=== PATIENT | male | born 1965 | race Hispanic/Latino ===

== ENCOUNTER 2019-02-22 12:15 | Emergency (ER) | payer OTHER ==
[2019-02-22] MEDS ORDERED: Lidocaine 1% w/Epinephrine 1:100K 20 ML VIAL ONE (12:36)
[2019-02-22] MEDS ORDERED: Ibuprofen 800 MG TAB ONE (13:13)
== END 2019-02-22 13:31 ==
LOC: ERS 12:15 → EEVIPCON 12:15 → ERS 13:31
DX: L02.611 Cutaneous abscess of right foot (principal); I10 Essential (primary) hypertension; K74.60 Unspecified cirrhosis of liver
CPT/HCPCS: 10060

== ENCOUNTER 2019-05-01 16:26 | Inpatient (IN) | payer OTHER ==
[~2019-05-01 16:26] MED LIST: Lidocaine 1% PF 5 ML VIAL ONE; PHENYLEPHRINE-NS 100 MCG/ML 10 ML SYRINGE ONE; PROPOFOL 200 MG/20 ML VIAL ONE; Rocuronium Bromide 10 MG/ML (10ML VIAL) ONE; Succinylcholine Chloride 20 MG/ML 10 ml SYRINGE FS ONE; ePHEDrine/0.9% NaCl/PF SYRINGE 50 mg/10 ml ONE
[2019-05-01] MEDS ORDERED: Octreotide Acetate 50 MCG/ML AMP SLOW IVP SCH (18:15)
[2019-05-01] MEDS ORDERED: Octreotide Acetate 1,250 MCG in Sodium Chloride 0.9% 250 ML 250 ML IVPB SCH ×2 (18:30→22:59)
[2019-05-01] MEDS ORDERED: Octreotide Acetate 100 MCG/ML VIAL ONE (18:33)
[2019-05-01] MEDS ORDERED: Pantoprazole 40 MG VIAL ONE (18:33)
[2019-05-01] MEDS ORDERED: Ondansetron PF 4 MG/2 ML Vial ONE ×2 (18:33→19:30)
--- NOTE | 2019-05-01 18:34 | RAD ---
Chest AP view INDICATION: Vomiting COMPARISON: None FINDINGS: Lungs:The lungs are clear Cardiac silhouette:The cardiomediastinal silhouette appears within normal limits. Pulmonary vasculature:Normal Pleural spaces:No pleural effusion or pneumothorax is demonstrated. Upper abdomen:No abnormality seen. Osseous structures: No acute osseous abnormality. Additional findings:Right IJ central venous catheter with its tip projecting in the region of the cav oatrial junction. IMPRESSION: No acute cardiopulmonary abnormality.
[2019-05-01 19:10] LABS: #Lymphocytes 1.2 thou/uL (1.20-3.40); #Monocytes 0.4 thou/uL (0.11-0.59); #Neutrophils 6.6 thou/uL (1.40-6.50); %Basophils 0.4 % (0.0-1.0); %Eosinophils 0.6 % (0.0-10.0); %Monocytes 4.8 % (0.0-10.0); %Neutrophils 80.3 % (42.0-75.0); Hemoglobin 9.6 g/dL (14.0-18.0); Mean Corpuscular HGB CONC 32.2 g/dL (32.0-36.0); Mean Corpuscular Hemoglobin 30.9 pg (27.0-31.0); Mean Corpuscular Volume 95.9 fL (78.0-98.0); RBC Distribution Width 13.4 % (11.5-14.5); White Blood Cell (WBC) Count 8.3 thou/uL (4.8-10.8)
[2019-05-01 19:14] LABS: INR-International Normal Ratio 1.3; Prothrombin Time 16.6 SEC (12.0-14.7)
[2019-05-01 19:18] LABS: Bilirubin Negative (Negative); Blood, Urine Negative (Negative); Clarity Clear (Clear); Glucose, Urine (Dipstick) Normal (Negative); Leukocyte Negative Leu/uL (Negative); Nitrite Negative (Negative); Protein, Urine (Dipstick) 20 mg/dL (Neg-Trace)
[2019-05-01 19:25] LABS: Mean Platelet Volume 8.8 fL (7.4-10.4); Platelet Count 104 thou/uL (130-400); Platelet Morphology Comment Appears Decreased; RBC Morphology Normal
[2019-05-01 19:31] LABS: ALT (SGPT) 16 U/L (8-55); AST (SGOT) 33 U/L (5-34); Albumin 2.4 g/dL (3.5-5.0); Alkaline Phosphatase 103 U/L (40-110); Anion Gap 9 mmol/L (10-20); BUN (Urea Nitrogen) 18 mg/dL (8.4-25.7); Bilirubin, Total 0.7 mg/dL (0.2-1.2); CK (CPK) 51 U/L (30-200); Calc. Creatinine Clearance 0 mL/min (70-130); Calcium 7.1 mg/dL (7.8-10.44); Carbon Dioxide 22 mmol/L (22-29); Chloride 110 mmol/L (98-107); Estimated GFR-MDRD Greater than 90; Globulin 2.9 g/dL (2.4-3.5); Glucose 140 mg/dL (70-105); Lipase 32 U/L (8-78); Potassium 4.3 mmol/L (3.5-5.1); Protein, Total 5.3 g/dL (6.0-8.3); Sodium 137 mmol/L (136-145)
[2019-05-01 20:38] LABS: Hemoglobin 9.1 g/dL (14.0-18.0)
--- NOTE | 2019-05-01 20:50 | PDOC.FPRHP ---
- History of Present Illness Chief Complaint: hematemesis History of Present Illness: Patient is a 53M with PMHx of esophageal varices, Hep C (treated), Cirrhosis, venous insufficiency that presents to the ED for hematemesis. Patient reports that he started having bouts of hematemesis earlier today after eating baked chicken. He also reports that he had several BM of bright red blood. He was seen in the medical [facility] and brought to the ED from the [facility]. He states that he does have a hx of esophageal varices for which he has undergone several corses of banding previously, but he has never had hematemesis or hematochezia. He reports of chronic cirrhosis from Hep C, which has been treated. Hep C was acquired from a hx of drug use. Denies cp, sob, abdominal pain. PCP: [facility] Course: 1g rocephin, 500ml NS, 8mg zofran x 2, 50mcg octreotide, 40mg protonix, 1L NS - Allergies/Adverse Reactions Allergies Allergy/AdvReac Type Severity Reaction Status Date / Time No Known Drug Allergies Allergy Verified 05/01/19 23:24 - Home Medications Medication Instructions Recorded Confirmed Type Acetaminophen 325 mg PO TID PRN 05/01/19 05/01/19 History Clindamycin HCl 300 mg PO TID 05/01/19 05/01/19 History Clotrimazole 1% Cream [Lotrimin 1% 1 applic TOP BID 05/01/19 05/01/19 History Cream] Cyanocobalamin 1000 MCG/ML VIA 1,000 mcg IM Q28D 05/01/19 05/01/19 History [Vitamin B-12] Furosemide [Lasix] 40 mg PO BID 05/01/19 05/01/19 History Lactulose 10 GM/15ML Oral Masha 30 gm PO BID 05/01/19 05/01/19 History [Lactulose] Lanolin/Mineral Oil [Thera-Derm 1 applic TOP ASDIR PRN 05/01/19 05/01/19 History Lotion] Naproxen 500 mg PO BID PRN 05/01/19 05/01/19 History Potassium Chloride 10 meq PO DAILY 05/01/19 05/01/19 History Propranolol [Inderal] 10 mg PO TID 05/01/19 05/01/19 History Spironolactone [Aldactone] 25 mg PO BID 05/01/19 05/01/19 History carBAMazepine [Carbamazepine] 400 mg PO QPM 05/01/19 05/01/19 History - History PMHx:esophageal varices, Hep C (treated), Cirrhosis, venous insufficiency PSHx: prior esophageal varices FHx: non-contributory Social: hx of IV drug use, hx of alcohol use but not abuse, 1/2ppd - Review of Systems General: denies: fever/chills, weight/appetite/sleep changes Eyes: denies: eye pain, vision changes ENT: denies: nasal congestion, rhinorrhea Respiratory: denies: cough, shortness of breath Cardiovascular: denies: chest pain, edema Gastrointestinal: reports: nausea, vomiting, GI bleeding Genitourinary: denies: incontinence, dysuria Skin: denies: rashes, jaundice Musculoskeletal: denies: pain, tenderness Neurological: denies: numbness, syncope Psychological: denies: anxiety, depression - Vital signs BP: [98/41] HR: [82] RR: [16] Tmax: [98.0] Pox: [97]% on [RA] Wt: [107.5kg] - Physical Exam Constitutional: NAD, awake, alert and oriented, well developed HEENT: normocephalic and atraumatic, EOMI, MMM Neck: supple, FROM Chest: no-tender to palpation, no lesions Heart: RRR, normal S1/S2, other (2+ pitting edema BLE to knees) Lungs: CTAB, no respiratory distress Abdomen: soft, non-tender, bowel sounds present Musculoskeletal: normal structure, normal tone Neurological: no focal deficit, normal sensation Skin: no rash/lesions, good turgor Heme/Lymphatic: no purpura, other (venous stasis dermatitis BLE) Psychiatric: normal mood and affect, good judgment and insight FMR H&P: Results - Labs Result Diagrams: 05/02/19 03:55 05/02/19 03:55 Lab results: WBC 8.3 thou/uL (4.8-10.8) 05/01/19 18:54 Hgb 9.1 g/dL (14.0-18.0) L 05/01/19 20:26 Hct 27.4 % (42.0-52.0) L 05/01/19 20:26 MCV 95.9 fL (78.0-98.0) 05/01/19 18:54 Plt Count 104 thou/uL (130-400) L 05/01/19 18:54 Neutrophils % 80.3 % (42.0-75.0) H 05/01/19 18:54 Sodium 137 mmol/L (136-145) 05/01/19 18:54 Potassium 4.3 mmol/L (3.5-5.1) 05/01/19 18:54 Chloride 110 mmol/L (98-107) H 05/01/19 18:54 Carbon Dioxide 22 mmol/L (22-29) 05/01/19 18:54 BUN 18 mg/dL (8.4-25.7) 05/01/19 18:54 Creatinine 0.85 mg/dL (0.7-1.3) 05/01/19 18:54 Glucose 140 mg/dL (70-105) H 05/01/19 18:54 Lactic Acid 1.5 mmol/L (0.5-2.2) 05/01/19 18:54 Calcium 7.1 mg/dL (7.8-10.44) L 05/01/19 18:54 Total Bilirubin 0.7 mg/dL (0.2-1.2) 05/01/19 18:54 AST 33 U/L (5-34) 05/01/19 18:54 ALT 16 U/L (8-55) 05/01/19 18:54 Alkaline Phosphatase 103 U/L (40-110) 05/01/19 18:54 Creatine Kinase 51 U/L (30-200) 05/01/19 18:54 B-Natriuretic Peptide 156.8 pg/mL (0-100) H 05/01/19 18:54 Serum Total Protein 5.3 g/dL (6.0-8.3) L 05/01/19 18:54 Albumin 2.4 g/dL (3.5-5.0) L 05/01/19 18:54 Lipase 32 U/L (8-78) 05/01/19 18:54 Urine Ketones Negative mg/dL (Negative) 05/01/19 18:55 Urine Blood Negative (Negative) 05/01/19 18:55 Urine Nitrite Negative (Negative) 05/01/19 18:55 Ur Leukocyte Esterase Negative Nico/uL (Negative) 05/01/19 18:55 - EKG Interpretation EKG: NSR - Radiology Interpretation Chest x-ray Status: report reviewed by me (No acute abnormality) FMR H&P: A/P - Problem List (1) Upper GI bleed Current Visit: Yes Status: Acute Code(s): K92.2 - GASTROINTESTINAL HEMORRHAGE, UNSPECIFIED (2) Esophageal varices Current Visit: Yes Status: Chronic Code(s): I85.00 - ESOPHAGEAL VARICES WITHOUT BLEEDING (3) Hepatitis C Current Visit: Yes Status: Chronic Code(s): B19.20 - UNSPECIFIED VIRAL HEPATITIS C WITHOUT HEPATIC COMA (4) Cirrhosis Current Visit: Yes Status: Chronic Code(s): K74.60 - UNSPECIFIED CIRRHOSIS OF LIVER (5) Venous insufficiency Current Visit: Yes Status: Acute Code(s): I87.2 - VENOUS INSUFFICIENCY ( CHRONIC) (PERIPHERAL) (6) Hypocalcemia Current Visit: Yes Status: Acute Code(s): E83.51 - HYPOCALCEMIA - Plan Patient is a 53M with PMHx of esophageal varices, Hep C (treated), Cirrhosis, venous insufficiency admitted for upper GI bleed #Upper GI Bleed -patient's hbg reportedly 5.6 [facility] the [place] [facility], started on 3u pRBC in the ED -hx of esophageal varices with banding, cirrhosis -started on octreotide and protonix in ED, continue -Dr. Ferraro consulted in ED, to take patient back for emergent EGD -started on ceftriaxone in ED, continue -R IJ central line placed 05/01 in ED, will continue to monitor BP and add pressors as needed -will continue to monitor hgb and order blood as needed #Esophageal Varices #Cirrhosis #Hep C -patient has hx of esophageal varices, likely due to venous congestion from cirrhosis, likely due to hx of Hep C -patient reports that Hep C has been treated -patient to go for emergent EGD to identify bleed -Will continue home meds for venous congestion #Hypocalcemia -calcium 7.1 -albumin 2.4 -likely pseudocalcemia as calcium corrects with corrected albumin #Venous Insufficiency -2+ pitting edema BLE to knees -venous stasis dermatitis noted -will continue home meds/creams Diet: NPO Dispo: Dr. Ferraro to take patient for emergent EGD, will continue to monitor BP and add pressors as needed; will continue to monitor hgb and order blood as needed Code: DNR PCP: [facility] FMR H&P: Upper Level - Pertinent history 53 yo M w/hx of cirrhosis secondary to Hep here with complaint of hematemesis. Per [facility], he vomited over 1L of bright red blood earlier today. Upon arrival to ED he was hypotensive, as low as 60/22. He got 3u PRBC in the ED which resulted in improvement of his BP. Hb is 9.1. GI was called from ED who plans to take pt back for EGD. PMHx Cirrhosis Hep C, treated HTN Previous esophageal varices PVD Surgical Hx Debridement of R foot wound Previous Variceal banding Social Hx Previous IVDU, 0.5 ppd smoker, previous etoh use - Pertinent findings See internal audit consultant note for full ROS, PE, vitals, and labs ROS General Denies fever or chills HEENT denies sore throat or ear pain CV Denies of CP or palpitations Resp Denies SOB or cough GI Complains of vomiting blood Neuro denies weakness or numbness. PE General A&O x4 HEENT NCAT, bright red blood seen in mouth CV RRR, no murmur Resp CTA Abd Soft, non tender Extremities 2+ pitting edema to knees b/l, equal pedal pulses Neuro no focal deficits - Plan Date/Time: 05/01/192049 I, Daniel Peacock DO, have evaluated this patient and agree with findings/plan as outlined by internal audit consultant resident. Pertinent changes/additions are listed here. 1.Acute variceal bleed - s/p 3u PRBC. Vitals currently stable. Will transfuse as needed until he is able to go back for banding. -GI consulted from ER -octreotide and protonix gtt. Got 1g Rocephin in ED -admit to ICU 2.HTN -Home meds 3.Cirrhosis -continue home meds 4.Pseudo hypocalcemia - secondary to hypoalbuminemia due to cirrhosis, corrects to WNL See internal audit consultant note for management of other chronic disease Diet NPO Code DNAR PPx SCD Dispo: pt is in critical condition. Would expect 2-3 days of hospitalization pending results of EGD and course following Addendum - Attending - Attending Attestation Date/Time: 05/01/192229 I personally evaluated the patient and discussed the management with Dr. Dutta. I agree with the History, Examination, Assessment and Plan documented above with any addition or exceptions noted below. The patient presents hematemesis and hematochezia. He has a pmh of hep c, cirrhosis with esophageal varices. GI is taking patient for emergent egd. He will be admitted to the ICU afterward. Will trend h/h. Monitor blood pressure. Pt is on an octreotide drip.
[2019-05-01] MEDS ORDERED: Fentanyl 100 MCG/2 ML VIAL ONE (21:04)
[2019-05-01] MEDS ORDERED: Phenylephrine HCL 10 MG/ML VIAL ONE (21:04)
[2019-05-01] MEDS ORDERED: cefTRIAXone\\ROCEPHIN 1 GM VIAL ONE (21:14)
--- NOTE | 2019-05-01 22:00 | CON ---
DATE OF CONSULTATION: 05/01/2019 CHIEF COMPLAINT: Vomited blood. HISTORY OF PRESENT ILLNESS: Mr. Jacobo is a 53-year-old inmate, who ate lunch today and after that noticed lightheadedness and weakness. He had a bowel movement that was runny. He had a second bowel movement that he also did not look at, but then he saw the toilet paper was bloody. He went to the emergency room and in the emergency room, he vomited 1400 mL of red blood. He also had another red bloody stool. He has a history of cirrhosis. He was treated for hepatitis C last year with Epclusa with cure of the viral infection. He reports that he had banding of esophageal varices back in 2014, but he has never had a GI bleed. He has had nausea and received Zofran for that in the emergency room. He developed hypotension and dropped his blood pressure down to the 60s systolic after the hematemesis episode and he received a unit of O-negative blood. He is now receiving a second unit of blood and his blood pressure has improved to the 110s over 50s. Pulse is in the 80s. He has been afebrile. He has had no diarrhea, constipation, or blood in the stool leading up to this. He has no abdominal pain now. His weight has been stable. He states that he goes to [place] for ultrasound of the liver every 6 months. PAST MEDICAL HISTORY: Cirrhosis of liver. Hepatitis C, reportedly cured with Epclusa last year, esophageal varices. He denies a history of encephalopathy or ascites. He states that he had debridement of wound in his right leg last year with a staph infection. PAST SURGICAL HISTORY: Esophageal varices banding and debridement of the right leg. FAMILY HISTORY: Negative for liver cancer or GI malignancy. SOCIAL HISTORY: No alcohol, tobacco, or drugs. He has been incarcerated for the last 22 years. ALLERGIES: NO KNOWN DRUG ALLERGIES. MEDICATIONS: 1. Carbamazepine. 2. Clindamycin. 3. Topical clotrimazole. 4. Vitamin B12. 5. Furosemide 40 mg twice daily. 6. Lactulose 30 mL twice daily. 7. Naproxen 500 mg twice daily. 8. Potassium. 9. Propranolol 10 mg three times daily. 10. Spironolactone 25 mg twice daily. REVIEW OF SYSTEMS: Negative x10 systems reviewed, except as stated in the history of present illness. PHYSICAL EXAMINATION: VITAL SIGNS: His blood pressure is in the 110s over 50s. Pulse is in the 80s. Temperature 98.9. GENERAL: He is in no acute distress. Alert and oriented x3. HEENT: Eyes have no scleral icterus. Oropharynx is clear without lesions. NECK: No cervical or supraclavicular lymphadenopathy. LUNGS: Clear to auscultation bilaterally. HEART: Regular rate and rhythm without murmur. ABDOMEN: Soft, nontender, and nondistended. Bowel sounds are present. EXTREMITIES: He has 2+ pitting lower extremity edema with apparent chronic edema of the lower extremities. NEUROLOGIC: He has no asterixis. LABORATORY DATA: His white blood cell count is 8.3, hemoglobin was 9.6 on presentation. After 1 unit of blood, his hemoglobin dropped down to 9.1, platelets 104. INR 1.3. Creatinine 0.85, bilirubin 0.7, AST 33, ALT 16, and alkaline phosphatase 103, albumin 2.4. IMPRESSION: 1. Upper gastrointestinal bleed in the setting of cirrhosis and history of esophageal varices banded most recently in 2014. Most likely he has esophageal varix bleed now. He has been on naproxen twice daily. 2. Cirrhosis of the liver. His albumin is little low, but otherwise his liver function tests are pretty good. He is decompensated from a standpoint of portal hypertension and variceal bleed that otherwise his liver function is not bad. He has been on lactulose previously, but is not acutely encephalopathic now. 3. History of hepatitis C, status post cure with Epclusa per his report. 4. History of esophageal varices. 5. We will give antibiotics for spontaneous bacterial peritonitis prophylaxis. RECOMMENDATIONS: 1. He has received bolus of octreotide and has octreotide drip going now. 2. Blood transfusion. He has received 2 units so far and is receiving volume resuscitation. 3. We will plan for emergent esophagogastroduodenoscopy for treatment of suspected variceal bleed. 4. The [facility] and gets hepatoma screening done through [place]. 5. Ceftriaxone 1 g daily will be given for SBP prophylaxis. He has been given his first dose in the emergency room. Job ID: [id number]
[2019-05-01] MEDS ORDERED: Ethanolamine Oleate 5% 2 ml Ampule ONE ×5 (22:10→22:16)
[2019-05-01] MEDS ORDERED: Propofol 1,000 MG/100 ML VIAL IV ONE (22:53)
[2019-05-01 23:13] LABS: Actual Bicarbonate (HCO3a) 22.3 mEq/L (22-28); Base Excess (BEa) -4.9 mEq/L (-2.0 to +3.0); CO2 Tension 50.8 mmHg (35.0-45.0); Calcium, Ionized 1.02 mmol/L (1.12-1.30); Carboxyhemoglobin (COHb) 1.1 gm% (0.0-3.0); O2 Tension (PaO2) 68.6 mmHg (80.0-100.0); pH, Arterial 7.26 (7.35-7.45)
[2019-05-01] MEDS ORDERED: Morphine 2 MG/ML SYRINGE SLOW IVP PRN (23:14)
[2019-05-01] MEDS ORDERED: Fentanyl BOLUS 250 ML IVPB PRN (23:14)
[2019-05-01] MEDS ORDERED: Propofol BOLUS 1,000 MG/100 ML VIAL IV PRN (23:14)
[2019-05-01] MEDS ORDERED: fentaNYL Citrate/PF 2,000 MCG in Sodium Chloride 0.9% 60 ML IV SCH (23:14)
[2019-05-01] MEDS ORDERED: Propofol 1,000 MG/100 ML VIAL IV PRN (23:14)
[2019-05-01] MEDS ORDERED: DISCONTINUE PREVIOUS NARCOTIC PAIN MEDICATIONS AND BENZODIAZEPINES FS SCH (23:14)
[2019-05-01] MEDS ORDERED: Lorazepam 2 MG/ML VIAL SLOW IVP PRN (23:14)
[2019-05-01 23:15] LABS: Puncture Site RR
[2019-05-01 23:28] LABS: Hemoglobin A1c 5.7 % (4.0-6.0)
[2019-05-01] MEDS: cefTRIAXone\\ROCEPHIN 1 GM in Sodium Chloride 0.9% 100 ML IVPB SCH (23:28)
[2019-05-01] MEDS ORDERED: Norepinephrine 8 MG/0.9% NS 250 ML IVPB SCH (23:49)
[2019-05-01] MEDS: Pantoprazole 80 MG in Sodium Chloride 0.9% 100 ML IVP SCH (23:53)
--- NOTE | 2019-05-02 00:21 | OP ---
DATE OF PROCEDURE: 05/01/2019 PROCEDURE: Esophagogastroduodenoscopy with banding of bleeding esophageal varices. PREOPERATIVE DIAGNOSIS: Anemia of acute blood loss and acute gastrointestinal bleed secondary to esophageal varices and hemorrhagic shock and cirrhosis. DESCRIPTION OF PROCEDURE: Informed consent was obtained from the patient. He was sedated with general anesthesia. The endoscope was advanced easily to the second portion of the duodenum. The esophagus had three columns of large grade 3 esophageal varices. One column had a focal ulceration with an adherent clot which was the obvious bleeding source. The stomach was full of red blood and clot and could not be visualized. The duodenum also was stained with blood throughout and was not well visualized. The varix with the adherent clot and ulceration was then banded. Suction of the varix up into the scope to dislodge the clot and red blood filled the cap such that when the band was deployed, there was inadequate variceal tissue within the cap and the band did not hold. There was immediately large volume of bleeding that filled the esophagus. 300 mL of blood was immediately suctioned and a second band was then placed at the bleeding site. The varix was banded with the ulceration site just a millimeter proximal to the band of the feeding varix. However, there was still oozing from the ulceration site. The other two large columns were also banded. While the bleeding had slowed to trickle, there still was some oozing from that ulcerated varix and it was too close to the other band to place another band in that area, so ultimately was injected with 3 mL of ethanolamine with good hemostasis confirmed. IMPRESSION: 1. Three columns grade 3 large varices in the distal esophagus. One varix had a focal ulceration with an overlying clot which was the obvious bleeding source. Three bands were placed and one area of focal ulceration and oozing was also injected with 3 mL of ethanolamine. Good hemostasis was confirmed. 2. Large amount of red blood and clot in the stomach and duodenum and these areas could not be adequately visualized. 3. Additional units of red blood cells were given during the procedure. A total of 3 units have been given to this point. RECOMMENDATIONS: 1. Continue octreotide drip. 2. He will remain on the ventilator overnight in the ICU. 3. Ceftriaxone 1 g every 24 hours. Job ID: [id number]
[2019-05-02] MEDS ORDERED: MINERAL OIL TOP PRN (01:45)
[2019-05-02] MEDS ORDERED: LANOLIN TOP PRN (01:45)
[2019-05-02] MEDS: Sodium Chloride 0.9% 1,000 ML IV SCH ×2 (03:40→06:10)
[2019-05-02 04:38] LABS: Band 6 % (5-11); Hemoglobin 10.5 g/dL (14.0-18.0); Lymphocytes 8 % (21-51); MDiff Complete? YES; Mean Corpuscular HGB CONC 33.8 g/dL (32.0-36.0); Mean Corpuscular Hemoglobin 31.7 pg (27.0-31.0); Mean Corpuscular Volume 93.7 fL (78.0-98.0); Mean Platelet Volume 8.6 fL (7.4-10.4); Monocytes 9 % (0-10); Neutrophil 77 % (42-75); Platelet Count 110 thou/uL (130-400); Platelet Morphology Comment Appears Decreased; RBC Distribution Width 13.7 % (11.5-14.5); Red Blood Cell (RBC) Count 3.31 mill/uL (4.70-6.10); White Blood Cell (WBC) Count 12.5 thou/uL (4.8-10.8)
[2019-05-02 04:48] LABS: Anion Gap 10 mmol/L (10-20); BUN (Urea Nitrogen) 20 mg/dL (8.4-25.7); Calc. Creatinine Clearance 171 mL/min (70-130); Calcium 6.9 mg/dL (7.8-10.44); Carbon Dioxide 22 mmol/L (22-29); Chloride 112 mmol/L (98-107); Estimated GFR-MDRD Greater than 90; Glucose 138 mg/dL (70-105); Potassium 4.6 mmol/L (3.5-5.1); Sodium 139 mmol/L (136-145)
--- NOTE | 2019-05-02 05:51 | PDOC.FM ---
- Subjective Subjective: 53 yo male seen at bedside this AM. Patient is intubated and sedated. Per nursing staff, he has had persistent bloody emesis output through his NG tube. No other acute events overnight. - Objective Vital Signs & Weight: Vital Signs (12 hours) Temp Pulse Resp Pulse Ox 05/02/19 04:00 97.9 F 10 L 05/02/19 03:08 92 05/02/19 02:00 11 L 05/02/19 00:00 10 L 05/01/19 23:39 96 05/01/19 22:45 98 05/01/19 22:35 98.6 F Weight Weight 109.8 kg Most Recent Monitor Data Heart Rate from ECG 95 NIBP 112/52 NIBP BP-Mean 72 Respiration from ECG 12 SpO2 96 I&O: 04/30/19 05/01/19 05/02/19 06:59 06:59 06:59 Intake Total 100 Output Total 462 Balance -362 Result Diagrams: 05/02/19 03:55 05/02/19 03:55 Phys Exam - Physical Examination Constitutional: NAD ET in place Respiratory: no wheezing, clear to auscultation bilateral Cardiovascular: RRR, no significant murmur Gastrointestinal: soft, non-tender, positive bowel sounds Musculoskeletal: edema present unable to fully evaluate Deviation from normal: intubated and sedated Dx/Plan (1) Upper GI bleed Code(s): K92.2 - GASTROINTESTINAL HEMORRHAGE, UNSPECIFIED Status: Acute (2) Esophageal varices Code(s): I85.00 - ESOPHAGEAL VARICES WITHOUT BLEEDING Status: Chronic (3) Cirrhosis Code(s): K74.60 - UNSPECIFIED CIRRHOSIS OF LIVER Status: Chronic (4) Hepatitis C Code(s): B19.20 - UNSPECIFIED VIRAL HEPATITIS C WITHOUT HEPATIC COMA Status: Chronic - Plan Plan: 1. Upper GI bleed 2/2 to Esophageal Varices - s/p banding from GI - Continue Octreotide - Levophed turned off overnight - Repeat H&H stable - GI recommended continued intubation after procedure due to possibility of emesis induced rebleeding - Extubation per recommendations from Pulmonology - Continue Rocephin 2. Cirrhosis 2/2 Hepatitis C - Chronic - Supportive Care Disposition: Guarded, continue current plan of care. Addendum - Attending - Attending Attestation Date/Time: 02/02/20 0806 I personally evaluated the patient and discussed the management with Dr. Martínez. I agree with the History, Examination, Assessment and Plan documented above with any addition or exceptions noted below. Pt is s/p banding of esophageal varices. He has been weaned off levophed. He remains intubated. Anticipate he will be extubated later today. H/H is stable. Will continue to trend. F/u with GI recs. Pulm has been consulted.
[2019-05-02] MEDS: Pantoprazole 80 MG in Sodium Chloride 0.9% 100 ML IVP SCH ×2 (08:11→16:45)
[2019-05-02] MEDS ORDERED: Furosemide 20 MG/2 ML VIAL SLOW IVP SCH (09:00)
[2019-05-02] MEDS ORDERED: FLU VACC QS2019-20(6MOS UP)/PF 60 MCG/0.5 ML SYRINGE IM ONE (09:00)
[2019-05-02] MEDS: Clotrimazole 1 % Cream 30 GM TUBE TOP SCH ×2 (09:04→20:19)
[2019-05-02] MEDS: Furosemide 20 MG/2 ML VIAL SLOW IVP SCH ×2 (09:05→20:18)
--- NOTE | 2019-05-02 12:17 | CON ---
DATE OF CONSULTATION: 05/02/2019 SERVICE: Pulmonary Medicine. HISTORY OF PRESENT ILLNESS: The patient did really well overnight. He got a couple of units of blood yesterday. His hemoglobin went from 9.6 to 9.1 with 1 unit, but with an additional unit, he made an appropriate rise. He cannot provide much in the way of history right now. He denies any current fevers or chills. He is on mechanical ventilator, he appears to be comfortable. There has been no interval change to his condition otherwise. PAST MEDICAL HISTORY: 1. Cirrhosis secondary to hepatitis C, status post therapy. 2. Venous insufficiency. 3. Esophageal varices, history of. PAST SURGICAL HISTORY: EGD with banding. FAMILY HISTORY: Noncontributory. SOCIAL HISTORY: Currently, he is incarcerated. He has history of alcohol and IV drug abuse. He smokes half pack on daily basis. ALLERGIES: KNOWN DRUG ALLERGIES. MEDICATIONS: List of his inpatient medications was reviewed. Multiple updates were made at this time. REVIEW OF SYSTEMS: This cannot be obtained as the patient is currently intubated and sedated. PHYSICAL EXAMINATION: VITAL SIGNS: Afebrile; pulse 95; blood pressure 115/56; respirations 15,; saturation 99%, currently on 30% FiO2 and PEEP of 5. GENERAL: The patient is awake and alert. No apparent distress. LUNGS: Decent air entry. Crackles are present. HEART: Normal rate. Regular. ABDOMEN: Soft, nontender, and nondistended. Bowel sounds are positive. MUSCULOSKELETAL: No cyanosis or clubbing. There is diffuse pitting throughout. NEUROLOGIC: Grossly nonfocal. LABORATORY DATA: WBC 12.5, hemoglobin up-trending to 10.5, platelets 110,000, neutrophils 77% on top of 6% bands. INR 1.3. PH of 7.26, pCO2 of 50.1, and pO2 of 68. Basic metabolic profile is otherwise unremarkable. Calcium 6.9. Lactate 1.5. Hemoglobin A1c 5.7. Liver function studies are unremarkable. BNP is elevated, but troponin is negative x1. Occult blood is unremarkable. ASSESSMENT: 1. Acute hypoxic respiratory failure. 2. Acute blood loss anemia secondary to variceal bleed, status post banding, postop day #1. 3. Cirrhosis secondary to hepatitis C. 4. Massive volume overload. DISCUSSION AND PLAN: Agree with introducing diuretics, now that his hemoglobins are stable. The patient will be placed on a spontaneous breathing trial. When he wakes up and meets criteria, extubation will be performed. Pulmonary/Critical Care will continue to follow along while the patient remains in this location. He will need to be watched closely for 24 hours after extubation to make certain repeat bleeding does not occur. I would prefer that he stay in the ICU, or IMCU until tomorrow morning. CRITICAL CARE TIME: 30 minutes. Job ID: [id number]
[2019-05-02] MEDS: Calcium Gluc 4.6 MEQ/10 ML (100 MG/ML) SLOW IVP SCH ×2 (12:55→16:15)
--- NOTE | 2019-05-02 17:49 | PRG ---
DATE OF SERVICE: 05/02/2019 SUBJECTIVE: Mr. Jacobo was extubated today. He has been passing some old melenic stool. He has no chest pain or abdominal pain and would like to start a diet. OBJECTIVE: VITAL SIGNS: Temperature 98.6, pulse 105, and blood pressure 107/60. GENERAL: He is in no acute distress. Alert and oriented x3. No asterixis on neurological exam. LUNGS: Clear to auscultation bilaterally. HEART: Regular rate and rhythm without murmur. ABDOMEN: Soft, nontender, and nondistended. Bowel sounds present. EXTREMITIES: 1 to 2+ pitting lower extremity edema. LABORATORY DATA: White blood cell count 12.5, hemoglobin 10.5, platelets 110. Creatinine 0.77. IMPRESSION: 1. Acute gastrointestinal bleed secondary to esophageal varices, status post banding and injection of Sclerosant with good hemostasis achieved. 2. Cirrhosis of liver. He has a history of hepatitis C, which reportedly cured with Epclusa with treatment last year. 3. Anemia of acute blood loss. He presented with hemorrhagic shock and his vital signs improved with transfusion. He has received 3 units total this hospital stay. RECOMMENDATIONS: 1. Continue octreotide drip to complete a 72-hour course from the time of banding. 2. Ceftriaxone 1 g every 24 hours for SBP prophylaxis. 3. Change to twice daily dosing pantoprazole. 4. Start a full liquid diet today and I will anticipate advancing to a low-fiber diet tomorrow. Job ID: [id number]
[2019-05-02] MEDS: Pantoprazole 40 MG VIAL IVP SCH (20:19)
[2019-05-02] MEDS: cefTRIAXone\\ROCEPHIN 1 GM in Sodium Chloride 0.9% 100 ML IVPB SCH (21:03)
[2019-05-03 05:27] VITALS: BMI 35.6
[2019-05-03 07:11] LABS: Phosphorus 2.1 mg/dL (2.3-4.7)
[2019-05-03 07:12] LABS: Anion Gap 7 mmol/L (10-20); BUN (Urea Nitrogen) 18 mg/dL (8.4-25.7); Calc. Creatinine Clearance 148 mL/min (70-130); Calcium 7.4 mg/dL (7.8-10.44); Carbon Dioxide 27 mmol/L (22-29); Chloride 108 mmol/L (98-107); Estimated GFR-MDRD 89; Glucose 125 mg/dL (70-105); Magnesium 1.8 mg/dL (1.6-2.6); Potassium 3.6 mmol/L (3.5-5.1); Sodium 138 mmol/L (136-145)
--- NOTE | 2019-05-03 07:15 | PDOC.FM ---
- Subjective Subjective: Pt denies hematemesis. reports discomfort in his jaw and chest since yesterday that is positional and dependent on body mvmt. Denies SOB, no other transforming factors. Pt feels it is sore from all the vomiting he had before admission. - Objective Vital Signs & Weight: Vital Signs (12 hours) Temp Pulse Ox 05/03/19 06:19 97 05/03/19 04:00 98.3 F 05/03/19 00:00 98.4 F 95 05/02/19 20:00 98.4 F 95 Weight Weight 109.3 kg Most Recent Monitor Data Heart Rate from ECG 105 NIBP 106/49 NIBP BP-Mean 68 Respiration from ECG 15 SpO2 91 I&O: 05/02/19 05/03/19 05/04/19 06:59 06:59 06:59 Intake Total 1326.3 1348.6 Output Total 497 2400 Balance 829.3 -1051.4 Result Diagrams: 05/02/19 03:55 05/03/19 06:00 Phys Exam - Physical Examination Constitutional: NAD HEENT: moist MMs, sclera anicteric Neck: supple, full ROM Respiratory: no wheezing, no rales Cardiovascular: RRR, no significant murmur Gastrointestinal: soft, no distention Musculoskeletal: pulses present Neurological: normal sensation, moves all 4 limbs Psychiatric: normal affect Skin: no rash, normal turgor Dx/Plan (1) Upper GI bleed Code(s): K92.2 - GASTROINTESTINAL HEMORRHAGE, UNSPECIFIED Status: Acute (2) Cirrhosis Code(s): K74.60 - UNSPECIFIED CIRRHOSIS OF LIVER Status: Chronic (3) Esophageal varices Code(s): I85.00 - ESOPHAGEAL VARICES WITHOUT BLEEDING Status: Chronic (4) Hepatitis C Code(s): B19.20 - UNSPECIFIED VIRAL HEPATITIS C WITHOUT HEPATIC COMA Status: Chronic - Plan Plan: Upper GI bleed /2 to Esophageal Varices A- s/p banding from GI on 05/01, s/p levophed treatment and extubation on 05/02, h/ h stable and improved after 3u prbc. Pulm and GI recs appreciated P- Continue Octreotide -Continue Rocephin for SBP PPx. -full liquid diet, advancement per GI recs -PPI BID -likely transfer to medical today Cirrhosis 2/2 Hepatitis C -Chronic, Supportive Care Venous insufficiency -cont home lasix HTN -will restart home meds once tolerating normal diet DVT PPx: contraindicated 2/2 [facility]
[2019-05-03 07:47] LABS: Band 11 % (5-11); Hemoglobin 8.7 g/dL (14.0-18.0); Lymphocytes 9 % (21-51); MDiff Complete? YES; Mean Corpuscular HGB CONC 32.6 g/dL (32.0-36.0); Mean Corpuscular Hemoglobin 30.5 pg (27.0-31.0); Mean Corpuscular Volume 93.6 fL (78.0-98.0); Mean Platelet Volume 8.5 fL (7.4-10.4); Monocytes 3 % (0-10); Neutrophil 77 % (42-75); Platelet Count 86 thou/uL (130-400); Platelet Morphology Comment Appears Decreased; RBC Distribution Width 13.8 % (11.5-14.5); RBC Morphology Normal; Red Blood Cell (RBC) Count 2.85 mill/uL (4.70-6.10); White Blood Cell (WBC) Count 10.8 thou/uL (4.8-10.8)
[2019-05-03] MEDS: Furosemide 20 MG/2 ML VIAL SLOW IVP SCH ×2 (09:21→21:33)
[2019-05-03] MEDS: Clotrimazole 1 % Cream 30 GM TUBE TOP SCH (09:21)
[2019-05-03] MEDS: Pantoprazole 40 MG VIAL IVP SCH ×2 (09:21→21:33)
--- NOTE | 2019-05-03 10:56 | PRG ---
DATE OF SERVICE: 05/03/2019 ADDENDUM: To the note of Dr. Zoran Crum. Mr. Jacobo is a 53-year-old male with a history of cirrhosis secondary to hepatitis C, who presented with an upper GI bleed. He was found to have a bleeding esophageal varix, which was banded. He is currently hemodynamically stable and remains on octreotide drip as well as PPI infusion. His hemoglobin this morning is stable at 8.7 and hematocrit 26.6. He is alert and in no distress. We will continue to follow with the GI Service. Job ID: [id number]
[2019-05-03] MEDS: Sodium Chloride 0.9% 1,000 ML IV SCH (12:02)
--- NOTE | 2019-05-03 12:25 | PRG ---
DATE OF SERVICE: 05/03/2019 SERVICE: Pulmonary Medicine. INTERVAL HISTORY: The patient is doing fine from respiratory standpoint. Tolerated extubation quite well yesterday. He had a little bit of chest discomfort, but an EKG this morning was essentially unremarkable. There is no shortness of breath, nausea, vomiting, or diarrhea. Otherwise, he is returning to his usual state of health. PHYSICAL EXAMINATION: VITAL SIGNS: Afebrile, pulse 103, blood pressure 112/65, respirations 14, saturations 93% on room air. GENERAL: The patient is awake and alert, in no apparent distress. LUNGS: Wonderful air entry. Crackles are present. No prolonged expiratory phase or wheezing is appreciated. HEART: Normal rate, regular. ABDOMEN: Soft, nontender, nondistended. Bowel sounds are positive. MUSCULOSKELETAL: No cyanosis or clubbing. There is no pitting in the bilateral lower extremities. NEUROLOGIC: Grossly nonfocal. LABORATORY DATA: WBC 10.8, hemoglobin 8.7, platelets 86,000. INR 1.3. Basic metabolic profile is otherwise unremarkable. Phosphorus is 2.1. Troponin is below the assay limit of 0.01. ASSESSMENT: 1. Acute hypoxic respiratory failure. 2. Acute blood loss anemia secondary to variceal bleed, status post banding, postop day 2. 3. Cirrhosis secondary to hepatitis C. 4. Volume overload. DISCUSSION AND PLAN: I will continue to diurese the patient down to euvolemia. At this point, he is hemodynamically stable, and his heart rate is settling down. He can be transitioned to the floor. I will repeat a hemoglobin this afternoon to make certain that we are not still dropping. At this point, the patient has no further requirements for inpatient Pulmonary or Critical Care opinion, and I will sign off. Please call with additional questions or concerns through time. Job ID: [id number]
[2019-05-03] MEDS: Potassium Chloride 20 MEQ TAB PO SCH ×2 (13:09→13:18)
[2019-05-03] MEDS: Potassium Phosphate 15 MMOL in Sodium Chloride 0.9% 250 ML 250 ML IVPB SCH ×2 (13:09→13:37)
[2019-05-03 15:18] LABS: Hemoglobin 8.8 g/dL (14.0-18.0)
--- NOTE | 2019-05-03 15:55 | PRG ---
DATE OF SERVICE: 05/03/2019 SUBJECTIVE: Mr. Jacobo has some odynophagia. He would rather stick with a full liquid diet today. PHYSICAL EXAMINATION: VITAL SIGNS: Temperature 98.3, pulse 103, blood pressure 112/65. GENERAL: He is in no acute distress. Alert and oriented x3. No asterixis. LUNGS: Clear to auscultation bilaterally. HEART: Regular rate and rhythm without murmur. ABDOMEN: Soft, nontender, nondistended. Bowel sounds are present. EXTREMITIES: Have chronic stasis changes and lymphedema and 1 to 2+ pitting lower extremity edema. LABORATORY DATA: Hemoglobin is 8.8. INR 1.3. Creatinine 0.9. IMPRESSION: 1. Esophageal varices, acute bleed status post banding and sclerosis. 2. Odynophagia secondary to #1. 3. Cirrhosis of the liver with past hepatitis C infection, reportedly cured with Epclusa. I have not rechecked a viral load this hospital stay, which unlikely will climate change risk assessor acutely. RECOMMENDATIONS: 1. Octreotide to complete a 72-hour course from the time of banding. He should finish this tomorrow evening. 2. Pantoprazole 40 mg IV twice daily. 3. Ceftriaxone for SBP prophylaxis. 4. If his hemoglobin remains stable, he is having no further acute bleeding, I would anticipate discharge from the hospital the morning after tomorrow. Job ID: [id number]
[2019-05-03] MEDS: cefTRIAXone\\ROCEPHIN 1 GM in Sodium Chloride 0.9% 100 ML IVPB SCH (21:32)
[2019-05-04] MEDS: Clotrimazole 1 % Cream 30 GM TUBE TOP SCH ×3 (00:23→21:54)
[2019-05-04 05:44] LABS: Anion Gap 8 mmol/L (10-20); BUN (Urea Nitrogen) 11 mg/dL (8.4-25.7); Calc. Creatinine Clearance 150 mL/min (70-130); Calcium 7.2 mg/dL (7.8-10.44); Carbon Dioxide 28 mmol/L (22-29); Chloride 105 mmol/L (98-107); Estimated GFR-MDRD 90; Glucose 120 mg/dL (70-105); Potassium 3.4 mmol/L (3.5-5.1); Sodium 138 mmol/L (136-145)
[2019-05-04] MEDS ORDERED: Metoclopramide HCl 10 MG/2 ML VIAL IVP SCH (05:45)
[2019-05-04] MEDS ORDERED: diphenhydrAMINE 25 MG in Sodium Chloride 0.9% 50 ML IVPB SCH (05:45)
[2019-05-04 05:54] LABS: Band 4 % (5-11); Eosinophils 2 % (0-10); Hemoglobin 8.2 g/dL (14.0-18.0); Lymphocytes 15 % (21-51); MDiff Complete? YES; Mean Corpuscular HGB CONC 33.9 g/dL (32.0-36.0); Mean Corpuscular Hemoglobin 31.6 pg (27.0-31.0); Mean Corpuscular Volume 93.3 fL (78.0-98.0); Mean Platelet Volume 8.2 fL (7.4-10.4); Monocytes 14 % (0-10); Neutrophil 65 % (42-75); Platelet Count 78 thou/uL (130-400); Platelet Morphology Comment Appears Decreased; RBC Distribution Width 13.5 % (11.5-14.5); Red Blood Cell (RBC) Count 2.59 mill/uL (4.70-6.10); White Blood Cell (WBC) Count 7.4 thou/uL (4.8-10.8)
--- NOTE | 2019-05-04 05:54 | PDOC.FM ---
- Subjective Subjective: Doing well this morning. Headache overnight resolved with Reglan/Benadryl combination. - Objective MAR Reviewed: Yes Vital Signs & Weight: Vital Signs (12 hours) Temp Pulse Resp BP Pulse Ox 05/04/19 04:38 99.0 F 107 H 21 H 100/61 91 L 05/04/19 01:46 99.6 F 109 H 93 L 05/04/19 00:32 99.1 F 110 H 22 H 117/59 L 93 L 05/03/19 20:00 93 L 05/03/19 19:29 99.7 F H 109 H 20 128/72 93 L Weight Weight 109.3 kg Most Recent Monitor Data Heart Rate from ECG 108 NIBP 107/50 NIBP BP-Mean 69 Respiration from ECG 15 SpO2 90 I&O: 05/02/19 05/03/19 05/04/19 06:59 06:59 06:59 Intake Total 1326.3 1348.6 600 Output Total 497 2400 1645 Balance 829.3 -1051.4 -1045 Result Diagrams: 05/04/19 05:07 05/04/19 05:07 Phys Exam - Physical Examination Constitutional: NAD HEENT: PERRLA, moist MMs Neck: no nodes, no JVD, supple Respiratory: no wheezing, no rales, no rhonchi, clear to auscultation bilateral Cardiovascular: RRR, no significant murmur, no rub Gastrointestinal: soft, non-tender, no distention, positive bowel sounds Musculoskeletal: pulses present, edema present (trace) Neurological: non-focal, normal sensation Psychiatric: normal affect, A&O x 3 Skin: no rash, normal turgor Dx/Plan (1) Hypocalcemia Code(s): E83.51 - HYPOCALCEMIA Status: Acute (2) Upper GI bleed Code(s): K92.2 - GASTROINTESTINAL HEMORRHAGE, UNSPECIFIED Status: Acute (3) Venous insufficiency Code(s): I87.2 - VENOUS INSUFFICIENCY (CHRONIC) (PERIPHERAL) Status: Acute (4) Cirrhosis Code(s): K74.60 - UNSPECIFIED CIRRHOSIS OF LIVER Status: Chronic (5) Esophageal varices Code(s): I85.00 - ESOPHAGEAL VARICES WITHOUT BLEEDING Status: Chronic (6) Hepatitis C Code(s): B19.20 - UNSPECIFIED VIRAL HEPATITIS C WITHOUT HEPATIC COMA Status: Chronic - Plan Plan: Upper GI bleed 05/02 to Esophageal Varices - s/p banding from GI on 05/01. On octreotide x 72 hours. GI Consulted, appreciate recommendations. -Continue Rocephin for SBP PPx. -full liquid diet, advancement per GI recs -PPI BID -Likely d/c tomorrow morning. Cirrhosis / Hepatitis C -Chronic, Supportive Care Venous insufficiency -cont home lasix HTN -will restart home meds once tolerating normal diet Dispo: Stable, likely d/c tomorrow Code: Full DVT PPx: contraindicated 05/02 [facility] Addendum - Attending - Attending Attestation Date/Time: 05/04/19 1210 I personally evaluated the patient and discussed the management with the team. I agree with the History, Examination, Assessment and Plan documented above with any addition or exceptions noted below. Denies cp/sob/n/v/f/c. Continue oct/rocephin. Begin restarting home meds. Hopeful d/c tomorrow.
[2019-05-04] MEDS: Furosemide 20 MG/2 ML VIAL SLOW IVP SCH (08:29)
[2019-05-04] MEDS: Pantoprazole 40 MG VIAL IVP SCH ×2 (08:29→21:37)
[2019-05-04] MEDS ORDERED: Potassium Chloride 20 MEQ TAB PO SCH (10:00)
[2019-05-04] MEDS ORDERED: Octreotide Acetate 1,250 MCG in Sodium Chloride 0.9% 250 ML 250 ML IVPB SCH (11:15)
--- NOTE | 2019-05-04 11:30 | PRG ---
DATE OF SERVICE: 05/04/2019 SUBJECTIVE: Mr. Jacobo has had no stool output. He has no abdominal pain. He took pain medication. He is not having any further pain with swallowing today. OBJECTIVE: VITAL SIGNS: Temperature 98.8, pulse 100, and blood pressure 100/58. GENERAL: He is in no acute distress. Alert and oriented x3. LUNGS: Clear to auscultation bilaterally. HEART: Regular rate and rhythm without murmur. ABDOMEN: Soft, nontender, and nondistended. Bowel sounds are present. EXTREMITIES: He has 1 to 2+ pitting lower extremity edema with chronic stasis changes. LABORATORY DATA: Potassium is 3.4 and creatinine 0.89. Hemoglobin 8.2. IMPRESSION: 1. Acute gastrointestinal bleed secondary to esophageal varices status post banding and sclerosis. 2. Odynophagia secondary to the esophageal banding and sclerosis, which is better today. I would avoid oral potassium supplements. If he needs potassium supplement, then give it IV for now. 3. Cirrhosis of the liver secondary to hepatitis C. Hepatitis C has been treated with Epclusa last year. RECOMMENDATIONS: 1. I will reduce the octreotide to 25 mcg/hour for the next 12 hours and then, discontinue. 2. He should remain on the pantoprazole 40 mg. This can be changed to oral dosing tomorrow. 3. Continue ceftriaxone for SBP prophylaxis. 4. If his hemoglobin is stable tomorrow, he can discharge home tomorrow morning. 5. He should follow up with [facility] through [facility] for surveillance endoscopy and completion banding of the varices. Job ID: [id number]
[2019-05-04] MEDS ORDERED: Potassium Chloride 20 MEQ/100 ML PREMIX BAG IVPB SCH (12:15)
[2019-05-04] MEDS: Furosemide 40 MG TAB PO SCH (21:36)
[2019-05-04] MEDS: cefTRIAXone\\ROCEPHIN 1 GM in Sodium Chloride 0.9% 100 ML IVPB SCH (21:37)
--- NOTE | 2019-05-05 05:19 | PDOC.FM ---
- Subjective Subjective: Mr. Jacobo is doing well this morning. Yesterday he tolerated a pureed/softened diet without difficulty. He has no complaints this morning. - Objective MAR Reviewed: Yes Vital Signs & Weight: Vital Signs (12 hours) Temp Pulse Resp BP BP Pulse Ox 05/05/19 04:00 98.3 F 83 20 95/59 L 94 L 05/05/19 00:00 98.3 F 89 20 109/66 93 L 05/04/19 21:40 107/62 05/04/19 20:00 93 L 05/04/19 19:27 98.7 F 85 20 99/62 98 05/04/19 17:48 98.0 F 87 18 96/60 99 Weight Weight 109.3 kg Most Recent Monitor Data Heart Rate from ECG 108 NIBP 107/50 NIBP BP-Mean 69 Respiration from ECG 15 SpO2 90 I&O: 05/03/19 05/04/19 05/05/19 06:59 06:59 06:59 Intake Total 1348.6 1710 Output Total 2400 2345 Balance -1051.4 -635 Result Diagrams: 05/05/19 05:27 05/05/19 05:27 Phys Exam - Physical Examination Constitutional: NAD HEENT: PERRLA, moist MMs Neck: no JVD, full ROM Respiratory: no wheezing, no rales, no rhonchi, clear to auscultation bilateral Cardiovascular: RRR, no significant murmur, no rub Gastrointestinal: soft, non-tender Musculoskeletal: no edema, pulses present Neurological: non-focal, normal sensation Psychiatric: normal affect, A&O x 3 Skin: no rash, normal turgor Dx/Plan (1) Hypocalcemia Code(s): E83.51 - HYPOCALCEMIA Status: Acute (2) Upper GI bleed Code(s): K92.2 - GASTROINTESTINAL HEMORRHAGE, UNSPECIFIED Status: Acute (3) Venous insufficiency Code(s): I87.2 - VENOUS INSUFFICIENCY (CHRONIC) (PERIPHERAL) Status: Acute (4) Cirrhosis Code(s): K74.60 - UNSPECIFIED CIRRHOSIS OF LIVER Status: Chronic (5) Esophageal varices Code(s): I85.00 - ESOPHAGEAL VARICES WITHOUT BLEEDING Status: Chronic (6) Hepatitis C Code(s): B19.20 - UNSPECIFIED VIRAL HEPATITIS C WITHOUT HEPATIC COMA Status: Chronic - Plan Plan: Upper GI bleed 05/02 to Esophageal Varices - s/p banding from GI on 05/01. Completed 72 hours of octreotide. - GI Consulted, appreciate recommendations. Per their notes, he may be ready for d/c today. - Will await GI sign off. - Diet advancement per GI recs - PPI BID Cirrhosis 05/02 Hepatitis C -Chronic, Supportive Care Venous insufficiency -cont home lasix HTN -will restart home meds once tolerating normal diet Dispo: Stable, likely d/c today Code: Full DVT PPx: contraindicated 05/02 [facility] Addendum - Attending - Attending Attestation Date/Time: 05/05/19 1250 I personally evaluated the patient and discussed the management with Dr. Craft. I agree with the History, Examination, Assessment and Plan documented above with any addition or exceptions noted below.
[2019-05-05 06:32] LABS: Band 17 % (5-11); Eosinophils 1 % (0-10); Hemoglobin 8.1 g/dL (14.0-18.0); Lymphocytes 18 % (21-51); MDiff Complete? YES; Mean Corpuscular HGB CONC 33.7 g/dL (32.0-36.0); Mean Corpuscular Hemoglobin 31.8 pg (27.0-31.0); Mean Corpuscular Volume 94.2 fL (78.0-98.0); Mean Platelet Volume 8.1 fL (7.4-10.4); Monocytes 3 % (0-10); Neutrophil 61 % (42-75); Platelet Count 86 thou/uL (130-400); Platelet Morphology Comment Appears Decreased; RBC Distribution Width 13.6 % (11.5-14.5); Red Blood Cell (RBC) Count 2.54 mill/uL (4.70-6.10); White Blood Cell (WBC) Count 4.8 thou/uL (4.8-10.8)
[2019-05-05] MEDS ORDERED: Lidocaine 1% w/Epinephrine 1:100K 20 ML VIAL ONE (06:32)
[2019-05-05] MEDS ORDERED: Bupivacaine 0.25% HCL 30 ML VIAL ONE (06:32)
[2019-05-05] MEDS ORDERED: Bupivacaine PF 0.5% 30 ML VIAL ONE (06:32)
[2019-05-05 06:40] LABS: Anion Gap 10 mmol/L (10-20); BUN (Urea Nitrogen) 9 mg/dL (8.4-25.7); Calc. Creatinine Clearance 159 mL/min (70-130); Calcium 7.3 mg/dL (7.8-10.44); Carbon Dioxide 27 mmol/L (22-29); Chloride 105 mmol/L (98-107); Estimated GFR-MDRD Greater than 90; Glucose 115 mg/dL (70-105); Potassium 3.5 mmol/L (3.5-5.1); Sodium 138 mmol/L (136-145)
[2019-05-05] MEDS ORDERED: Lidocaine 1% (PF) 30 ML VIAL ONE (07:39)
[2019-05-05] MEDS ORDERED: methylPREDNISolone Acetate 40 mg/ml Vial ONE (07:39)
[2019-05-05 08:09] VITALS: BP 116/71; TEMP 97.9
[2019-05-05] MEDS: Clotrimazole 1 % Cream 30 GM TUBE TOP SCH (09:53)
[2019-05-05] MEDS: Pantoprazole 40 MG VIAL IVP SCH (10:51)
[2019-05-05] MEDS: Furosemide 40 MG TAB PO SCH (10:51)
--- NOTE | 2019-05-05 15:33 | PRG ---
DATE OF SERVICE: 05/05/2019 SUBJECTIVE: Mr. Jacobo is swallowing solid food without any discomfort. He has no abdominal pain. He had a bowel movement, which was normal in color. OBJECTIVE: VITAL SIGNS: Temperature 97.9, pulse 87, and blood pressure 116/71. GENERAL: He is in no acute distress. Alert and oriented x3. LUNGS: Clear to auscultation bilaterally. HEART: Regular rate and rhythm without murmur. ABDOMEN: Soft, nontender, and nondistended. Bowel sounds are present. EXTREMITIES: 1+ pitting lower extremity edema with chronic stasis changes and lymphedema. LABORATORY DATA: Hemoglobin is 8.1, platelets 86. Creatinine 0.84. IMPRESSION: 1. Acute gastrointestinal bleed secondary to esophageal varices, status post banding and sclerosis with good hemostasis. The patient has had no further overt bleeding since the procedure. He has completed a course of octreotide following that. 2. Cirrhosis of the liver secondary to past hepatitis C. He states that he has been cured of the hepatitis C with Epclusa last year. 3. Anemia of acute blood loss. RECOMMENDATIONS: 1. Pantoprazole 40 mg daily. 2. Follow up with GI through [place] for repeat EGD and banding of varices in 2 to 4 weeks. 3. He is stable for discharge today. 4. Antibiotics for SBP prophylaxis can be discontinued at this point. Job ID: [id number]
== END 2019-05-05 17:43 | DRG 368 ==
LOC: ERS 16:26 → SDC/OP 21:59 → CCU 22:40 → T4-A 05-03 10:20
PROVIDERS: ADMIT Family Medicine; ATTEND Family Medicine
PROC: 30233N1 Transfusion of Nonautologous Red Blood Cells into Peripheral Vein, Percutaneous Approach (ICD-10-PCS; principal; 2019-05-01)
PROC: 5A1935Z Respiratory Ventilation, Less than 24 Consecutive Hours (ICD-10-PCS; 2019-05-01)
PROC: 0BH17EZ Insertion of Endotracheal Airway into Trachea, Via Natural or Artificial Opening (ICD-10-PCS; 2019-05-01)
DX: I85.11 Secondary esophageal varices with bleeding (principal); R57.8 Other shock; J96.01 Acute respiratory failure with hypoxia; D62 Acute posthemorrhagic anemia; K74.60 Unspecified cirrhosis of liver; B19.20 Unspecified viral hepatitis C without hepatic coma; Z79.899 Other long term (current) drug therapy; I87.2 Venous insufficiency (chronic) (peripheral); E83.51 Hypocalcemia; F17.200 Nicotine dependence, unspecified, uncomplicated; Z66 Do not resuscitate; R13.19 Other dysphagia
CPT/HCPCS: 36415; 36430; 36556; 71045; 80048; 80053; 81003; 82274; 82550; 82805; 83036; 83605; 83690; 83735; 83880; 84100; 84484; 85007; 85025; 85027; 85610; 85730; 86850; 86900; 86901; 93005; 93010; 94002; 94003; 94760; 96361; 96365; 96366; 96367; 96375; 96376; C9113; J0696; J1030; J1200; J1430; J1940; J2001; J2354; J2370; J2405; J2704; J2765; J3010; J3480; J3490; J7050; P9016; S0020

== ENCOUNTER 2020-04-16 05:40 | Emergency (ER) | payer OTHER ==
[2020-04-16 07:30] LABS: ALT (SGPT) 11 U/L (8-55); AST (SGOT) 20 U/L (5-34); Albumin 3.1 g/dL (3.5-5.0); Alkaline Phosphatase 134 U/L (40-110); Anion Gap 12 mmol/L (10-20); BUN (Urea Nitrogen) 10 mg/dL (8.4-25.7); Calc. Creatinine Clearance 0 mL/min (70-130); Calcium 8.1 mg/dL (7.8-10.44); Carbon Dioxide 21 mmol/L (22-29); Chloride 107 mmol/L (98-107); Globulin 5.3 g/dL (2.4-3.5); Glucose 109 mg/dL (70-105); Potassium 3.8 mmol/L (3.5-5.1); Protein, Total 8.4 g/dL (6.0-8.3); Sodium 136 mmol/L (136-145)
[2020-04-16] MEDS ORDERED: Clindamycin/D5W 900 mg/50 ml Premix Bag ONE (07:38)
[2020-04-16 07:45] LABS: #Eosinphils 0.2 thou/uL (0.0-0.7); #Lymphocytes 1.3 thou/uL (1.20-3.40); #Monocytes 0.8 thou/uL (0.11-0.59); #Neutrophils 6.6 thou/uL (1.40-6.50); %Basophils 0.1 % (0.0-1.0); %Eosinophils 1.8 % (0.0-10.0); %Lymphocytes 14.5 % (21.0-51.0); %Monocytes 8.7 % (0.0-10.0); %Neutrophils 74.9 % (42.0-75.0); Hemoglobin 13.8 g/dL (14.0-18.0); MDiff Complete? YES; Mean Corpuscular HGB CONC 32.7 g/dL (32.0-36.0); Mean Corpuscular Volume 91.8 fL (78.0-98.0); Mean Platelet Volume 9.4 fL (7.4-10.4); Platelet Count 77 thou/uL (130-400); Platelet Morphology Comment Appears Decreased; RBC Distribution Width 14.4 % (11.5-14.5); Red Blood Cell (RBC) Count 4.59 mill/uL (4.70-6.10); White Blood Cell (WBC) Count 8.8 thou/uL (4.8-10.8)
[2020-04-16] MEDS ORDERED: Acetaminophen 500 MG TAB ONE (08:15)
== END 2020-04-16 08:33 ==
LOC: ERS 05:40
DX: L03.115 Cellulitis of right lower limb (principal); I89.0 Lymphedema, not elsewhere classified; K74.60 Unspecified cirrhosis of liver; I10 Essential (primary) hypertension; I73.9 Peripheral vascular disease, unspecified; Z79.899 Other long term (current) drug therapy
CPT/HCPCS: 36415; 80053; 80143; 83605; 85025; 96365; 80307; J3490